=== PATIENT | female | born 2000 ===

== ENCOUNTER → 2024-04-30 | Outpatient (CLI) | payer OTHER | LOC: LAB 12:55 → LAB SHORT 12:55 | DX: Z34.81 Encounter for supervision of other normal pregnancy, first trimester (principal) | CPT/HCPCS: 87081; 87150 ==

== ENCOUNTER 2024-05-25 07:09 | Inpatient (IN) | payer OTHER ==
[2024-05-25] VITALS (32 sets, daily range): BP systolic 85–128; BP diastolic 53–85
[~2024-05-25] VITALS: Ht 157.5 cm; Wt 70.9 kg
[~2024-05-25 07:09] MED LIST: Tranexamic Acid 1000 MG/10 ML 10ML Vial (SDV) IV ONE
[2024-05-25] MEDS ORDERED: Lactated Ringer's 1,000 ML IV SCH ×3 (07:40→18:10)
[2024-05-25] MEDS ORDERED: OXYTOCIN/RINGER'S LACTATE 500 ML IV SCH ×2 (07:40→18:15)
[2024-05-25] MEDS ORDERED: FentaNYL Citrate 50 MCG/ML 2 ML Injection IV PRN (07:45)
[2024-05-25] MEDS ORDERED: Tranexamic Acid 100 ML IV SCH (08:20)
[2024-05-25] MEDS ORDERED: ePHEDrine Sulfate 50 MG/ML 1ML Injection XX PRN (08:20)
[2024-05-25] MEDS ORDERED: Methylergonovine Maleate 0.2MG / ML 1ML Amp IM PRN ×2 (08:20→18:15)
[2024-05-25] MEDS ORDERED: Oxytocin 10 Unit / ML Vial IM PRN (08:20)
[2024-05-25] MEDS ORDERED: Acetaminophen 500 MG Tab PO PRN (08:20)
[2024-05-25] MEDS ORDERED: FentaNYL 2mcg/ml-Bup 0.1% Epd 250 ML EPI PRN (08:20)
[2024-05-25] MEDS ORDERED: Lactated Ringer's 1,000 ML IV PRN ×2 (08:20)
[2024-05-25] MEDS ORDERED: Carboprost Tromethamine 250 MCG/ML 1ML Amp IM PRN (08:20)
[2024-05-25] MEDS ORDERED: Misoprostol 200 MCG Tab PR PRN (08:20)
[2024-05-25] MEDS ORDERED: Misoprostol 200 MCG Tab BC PRN ×2 (08:20→18:25)
[2024-05-25] MEDS ORDERED: Ondansetron HCl 2 MG / ML 2ML Vial IV PRN (08:20)
[2024-05-25] MEDS ORDERED: OXYTOCIN/RINGER'S LACTATE 500 ML IV PRN (08:20)
[2024-05-25] MEDS ORDERED: Calcium Carbonate 500 MG Tab Chew PO PRN (08:25)
[2024-05-25 08:30] LABS: BASOPHILS ABSOLUTE AUTO 0.05 K/mm3 (0.00-0.23); BASOPHILS PERCENT AUTO 0 % (0-2); EOSINOPHILS PERCENT AUTO 1 % (0-6); Hematocrit 30.3 % (33.0-51.0); Hemoglobin 9.5 g/dL (11.5-16.0); IMMATURE GRAN ABSOLUTE AUTO 0.38 K/mm3 (0.00-0.10); IMMATURE GRAN PERCENT AUTO 3 % (0-1); LYMPHOCYTES ABSOLUTE AUTO 1.92 K/mm3 (0.84-5.20); LYMPHOCYTES PERCENT AUTO 15 % (21-46); MONOCYTES ABSOLUTE AUTO 1.23 K/mm3 (0.16-1.47); MONOCYTES PERCENT AUTO 10 % (4-13); Mean Corpuscular HGB 24.7 pg (26.0-34.0); Mean Corpuscular HGB Conc 31.4 g/dL (31.5-36.5); Mean Corpuscular Volume 79 fL (80-100); Mean Platelet Volume 11.5 fL (9.1-12.4); NEUTROPHILS PERCENT AUTO 72 % (41-73); Platelet Count 161 K/mm3 (150-400); RDW Coefficient Variation 14.4 % (11.7-14.2); RDW Standard Deviation 41.1 fL (35.1-46.3); Red Blood Cell Count 3.85 M/mm3 (3.80-5.20); White Blood Cell Count 12.98 K/mm3 (4.00-11.30)
[2024-05-25] MEDS ORDERED: PRENATAL TABLE1 EAC2 PO (08:48)
[2024-05-25] MEDS ORDERED: VALACYCLOVIR1000 M1 PO (08:49)
[2024-05-25] MEDS ORDERED: ESCI10 PO (08:49)
[2024-05-25] MEDS ORDERED: VALA500 PO (08:49)
[2024-05-25] MEDS ORDERED: NS 100 ML IV ONE (17:41)
[2024-05-25] MEDS ORDERED: Witch Hazel/Glycerin PADS TOP PRN (18:10)
[2024-05-25] MEDS ORDERED: Ketorolac Tromethamine 30mg Vial IV PRN (18:15)
[2024-05-25] MEDS ORDERED: Benzocaine Topical Anesthetic Spray 60GM TOP PRN (18:15)
[2024-05-25] MEDS ORDERED: Ibuprofen 400 MG Tab PO PRN (18:15)
[2024-05-25] MEDS ORDERED: Lanolin Cream TOP PRN (18:15)
[2024-05-25] MEDS ORDERED: FLU VACC TS2024-25(6MOS UP)/PF 45 MCG/0.5 ML SYRINGE IM SCH (18:20)
[2024-05-25] MEDS ORDERED: Acetaminophen 325 MG TABLET PO PRN (18:20)
[2024-05-25] MEDS ORDERED: Docusate Sodium 100 MG Cap PO PRN (18:20)
[2024-05-25] MEDS ORDERED: Tranexamic Acid 100 ML IV ONE (18:25)
[2024-05-26 00:09] VITALS: BP 104/57
[2024-05-26 05:55] VITALS: BP 79/41
[2024-05-26 05:56] VITALS: BP 99/65
[2024-05-26 06:34] LABS: Hematocrit 24.1 % (33.0-51.0); Hemoglobin 7.7 g/dL (11.5-16.0); Mean Corpuscular Volume 78 fL (80-100); Mean Platelet Volume 11.4 fL (9.1-12.4); Platelet Count 143 K/mm3 (150-400); RDW Coefficient Variation 14.5 % (11.7-14.2); RDW Standard Deviation 40.8 fL (35.1-46.3); Red Blood Cell Count 3.08 M/mm3 (3.80-5.20); White Blood Cell Count 14.78 K/mm3 (4.00-11.30)
[2024-05-26] MEDS ORDERED: Prenatal Vit/FE Fumarate/FA 1 Tab PO SCH (09:00)
[2024-05-26] MEDS ORDERED: Sod Ferric Gluc Complx/Sucrose 125 MG in NS 100 ML IV SCH (09:00)
[2024-05-26 10:23] VITALS: BP 98/57
--- NOTE | 2024-05-26 12:02 | NUR ---
Dr. Doll notified of high EPDS screen - 16 with and answere of 1 on question 10. Pt has pp appointment at office scheduled for 06/08/23 and SW consult will be done inpt prior to discharge this afternoon. Teri MENESES, notified and will be down francesco prior to discharge.
[2024-05-26 13:40] VITALS: BP 111/58
[2024-05-26 16:14] VITALS: BP 104/61
[2024-05-26] MEDS ORDERED: IBUP800 PO (18:43)
--- NOTE | 2024-05-26 19:00 | NUR ---
No acute changes t/o shift. ID bands matched w/nb and verification form. Pt denies additional questions/concerns. Pt d/c'd home ambulatory to care of SO.
== END 2024-05-26 18:55 | disposition home or self-care (01) | DRG 806 ==
LOC: OBS 07:09 → BC 07:09 → OBS 08:07 → BC 08:07
PROVIDERS: ADMIT Advanced Practice Midwife
PROC: 10E0XZZ Delivery of Products of Conception, External Approach (ICD-10-PCS; principal; 2024-05-25)
PROC: 3E0R3BZ Introduction of Anesthetic Agent into Spinal Canal, Percutaneous Approach (ICD-10-PCS; 2024-05-25)
PROC: 00HU33Z Insertion of Infusion Device into Spinal Canal, Percutaneous Approach (ICD-10-PCS; 2024-05-25)
DX: O48.0 Post-term pregnancy (principal); O98.32 Other infections with a predominantly sexual mode of transmission complicating childbirth; Z37.0 Single live birth; Z3A.40 40 weeks gestation of pregnancy; A60.00 Herpesviral infection of urogenital system, unspecified; O99.02 Anemia complicating childbirth; O99.344 Other mental disorders complicating childbirth; F41.8 Other specified anxiety disorders; F90.9 Attention-deficit hyperactivity disorder, unspecified type; Z91.018 Allergy to other foods
CPT/HCPCS: 36415; 51702; 85025; 85027; 86850; 86900; 86901; A9270; J1885; J2590; J2916; J7120

== ENCOUNTER → 2024-07-05 | Outpatient (CLI) | payer OTHER ==
[~2024-07-05] MED LIST changes: +ESCI10 PO; +IBUP800 PO; +PRENATAL TABLE1 EAC2 PO; -Tranexamic Acid 1000 MG/10 ML 10ML Vial (SDV) IV ONE; +VALA500 PO; +VALACYCLOVIR1000 M1 PO
[2024-07-07 12:33] LABS: APTIMA MEDIA TYPE Urine; C. TRACHOMATIS BY TMA Negative (Negative); N. GONORRHOEAE BY TMA Negative (Negative); SPECIMEN SOURCE Urine
== END ==
LOC: LAB 12:07 → LAB SHORT 12:07
PROVIDERS: Advanced Practice Midwife
DX: Z11.3 Encounter for screening for infections with a predominantly sexual mode of transmission (principal)
CPT/HCPCS: 87491; 87591

== ENCOUNTER 2025-01-01 02:04 | Emergency (ER) | payer OTHER ==
[~2025-01-01] VITALS: Ht 157.5 cm; Wt 54.4 kg
[2025-01-01] MEDS ORDERED: Ondansetron 4 MG SoluTab SL ONE (06:25)
[2025-01-01] MEDS ORDERED: ONDA4ODT MM (07:26)
== END 2025-01-01 07:40 | disposition home or self-care (01) ==
LOC: ER 02:04
DX: R11.2 Nausea with vomiting, unspecified (principal); Z91.018 Allergy to other foods; Z79.899 Other long term (current) drug therapy
CPT/HCPCS: 99283; A9270